=== PATIENT | female | born 1990 | race Caucasian/White ===

== ENCOUNTER 2017-09-11 15:55 | Emergency (ER) | payer SELFPAY ==
[~2017-09-11] VITALS: Ht 162.6 cm; Wt 65.0 kg
[2017-09-11 17:41] LABS: CLARITY URINE CLEAR (CLEAR); COLOR URINE YELLOW (YELLOW); KETONES URINE NEGATIVE (NEGATIVE); LEUKOCYTE ESTERASE URINE 2+ (NEGATIVE); NITRITE URINE NEGATIVE (NEGATIVE); OCCULT BLOOD URINE NEGATIVE (NEGATIVE); PH URINE 7.5 (4.5-8.0); PROTEIN URINE NEGATIVE (NEGATIVE); SPECIFIC GRAVITY URINE 1.004 (1.005-1.030)
[2017-09-11] MEDS ORDERED: ACETAMINOPHEN 500MG TABLET PO ONE (18:15)
[2017-09-11] MEDS ORDERED: KETOROLAC 30MG/ML VIAL IM ONE (18:15)
[2017-09-11] MEDS ORDERED: MORPHINE SULFATE 10 MG/ML CPJ IM ONE (19:15)
[2017-09-11] MEDS ORDERED: ONDANSETRON 4MG ODT PO ONE (19:15)
[2017-09-11] MEDS ORDERED: MORPHINE SULFATE 10 MG/ML CPJ IM NR (19:45)
[2017-09-11 20:30] VITALS: BP 105/68
== END 2017-09-11 20:35 | disposition home or self-care (01) ==
LOC: ER 17:20
DX: M54.5 Low back pain (principal)
CPT/HCPCS: 72100; 81003; 81025; 96372; 99285; J1885; J2270; Q0162

== ENCOUNTER 2021-03-19 21:09 | Emergency (ER) | payer MEDICAID ==
[~2021-03-19] VITALS: Ht 167.6 cm; Wt 75.6 kg
[2021-03-19] MEDS ORDERED: MAGNESIUM/ALUMINUM HYDROXIDE/SIMETHICONE 30ML UDC PO STA (21:57)
[2021-03-19] MEDS ORDERED: FAMOTIDINE 20MG TABLET PO ONE (22:00)
[2021-03-19 23:26] LABS: CHLORIDE 108 mEq/L (98-107)
[2021-03-19 23:35] LABS: BASOPHILS % 0.2 % (0.0-2.0); EOSINOPHILS % 0.9 % (0.0-5.0); HEMATOCRIT. 40.4 % (36.0-48.0); HEMOGLOBIN. 14.1 g/dL (12.0-16.0); LYMPHOCYTES % 16.6 % (20.0-50.0); MEAN CORPUSCULAR HEMOGLOBIN 29.7 pg (28.0-32.0); MEAN CORPUSCULAR VOLUME 85.2 fL (81.0-99.0); MEAN PLATELET VOLUME 9.2 fl (7.4-10.4); MONOCYTES % 6.4 % (2.0-8.0); NEUTROPHILS % 75.9 % (40.0-76.0); PLATELET 342 x1000/uL (130-400); RED BLOOD CELL COUNT 4.74 mill/uL (4.2-5.4)
[2021-03-19 23:37] LABS: B-HCG QUANTITATIVE < 1 mIU/mL (<3)
[2021-03-20] VITALS: BP 129/72
[2021-03-20 00:03] LABS: HCG SCREEN NEGATIVE
[2021-03-20 00:51] LABS: CLARITY URINE CLEAR (CLEAR); COLOR URINE YELLOW (YELLOW); KETONES URINE NEGATIVE (NEGATIVE); LEUKOCYTE ESTERASE URINE NEGATIVE (NEGATIVE); NITRITE URINE NEGATIVE (NEGATIVE); OCCULT BLOOD URINE NEGATIVE (NEGATIVE); PROTEIN URINE NEGATIVE (NEGATIVE); SPECIFIC GRAVITY URINE 1.011 (1.005-1.030); UROBILINOGEN URINE 0.2 E.U./dL (0.2-1.0)
== END 2021-03-20 03:51 | disposition home or self-care (01) ==
LOC: ER 21:09
DX: R10.13 Epigastric pain (principal)
CPT/HCPCS: 36415; 71045; 76700; 80053; 81003; 84484; 84702; 84703; 85025; 93005; 99285